=== PATIENT | male | born 2000 | race Caucasian/White ===

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

== ENCOUNTER 2020-10-26 23:26 | Emergency (ER) | payer BC ==
[~2020-10-26 23:26] MED LIST: Azithromycin 250 MG Tab ONE
--- NOTE | 2020-10-27 00:34 | ER ---
HISTORY OF PRESENT ILLNESS: 20-year-old male here with complaints of a sore throat. This has been ongoing for a couple of days. He states he looked in his throat and is red, tonsils are big. The patient does have history of strep throat on a fairly regular basis and feels this is another episode happening. He has been running a bit of a fever and has been using some [id number] meds as needed. OBJECTIVE: GENERAL APPEARANCE: The patient is awake and alert. No respiratory distress. He does talk with a hot potato voice. VITAL SIGNS: Reviewed. He is afebrile tonight. HEENT: Oral, mucous membranes are moist. Tonsils are enlarged and injected. Pharynx is also moderately erythematous. NECK: Supple with tender cervical lymphadenopathy. LUNGS: Clear. CARDIAC: Heart sounds distinct without murmurs. SKIN: Warm and dry. LABORATORY DATA AND X-RAY: Point of care strep test is negative. DIAGNOSIS: Tonsillitis with history of strep. TREATMENT PLAN: I gave the patient the option of further evaluation versus treating him for strep and he just wants to be treated. He does not want any further testing. I will therefore put him on a Z-Varun. Strep precautions were discussed. Tylenol or ibuprofen are to be used as needed. Using them regularly for the next day or 2 and then p.r.n. and other family members are to be monitored as well for similar symptoms. CRS/MODL /[id number]
== END 2020-10-27 00:11 | disposition home or self-care (01) ==
LOC: LB.ED 23:26
DX: J03.90 Acute tonsillitis, unspecified (principal)
CPT/HCPCS: 87430; 99283; A9270-GY

== ENCOUNTER 2021-08-20 15:01 | Emergency (ER) | payer BC ==
[2021-08-20] MEDS ORDERED: Acetaminophen/HYDROcodone 325-5 MG Tab PO ONE (15:06)
[2021-08-20] MEDS ORDERED: predniSONE 10 MG Tab ONE (15:20)
[2021-08-20] MEDS ORDERED: Acetaminophen/HYDROcodone 325-5 MG Tab ONE (15:20)
== END 2021-08-20 15:27 | disposition home or self-care (01) ==
LOC: LB.ED 15:01
DX: G89.18 Other acute postprocedural pain (principal); Z90.89 Acquired absence of other organs; Z88.0 Allergy status to penicillin
CPT/HCPCS: 99283; A9270-GY; J7512

== ENCOUNTER 2022-08-25 00:22 | Emergency (ER) | payer BC ==
[2022-08-25] MEDS ORDERED: Tetracaine HCl/PF 0.5% 4 ML Bottle EYELF ONE (00:37)
[2022-08-25] MEDS ORDERED: Diphtheria,Pertussis(Acell),Tetanus Vaccine 0.5 ML Syringe IM ONE (00:55)
[2022-08-25] MEDS ORDERED: Ciprofloxacin 0.3% Ophth Soln 2.5 ML Bottle ONE (01:00)
== END 2022-08-25 01:10 | disposition home or self-care (01) ==
LOC: LB.ED 00:22
DX: T15.02XA Foreign body in cornea, left eye, initial encounter (principal); Z88.0 Allergy status to penicillin; Z72.0 Tobacco use; Z23 Encounter for immunization
CPT/HCPCS: 90471; 90715; 99282; 99283-25; A9270-GY